=== PATIENT | male | born 1990 | race African-American/Black ===

== ENCOUNTER 2016-07-21 23:23 | Emergency (ER) | payer OTHER ==
[~2016-07-21] VITALS: Ht 180.3 cm; Wt 78.5 kg
[2016-07-22] MEDS ORDERED: ACETAMINOPHEN 325 MG TAB As Ordered ONE (00:50)
[2016-07-22] MEDS ORDERED: PRED20TA PO (00:57)
[2016-07-22] MEDS ORDERED: ZITHTAB PO (00:57)
[2016-07-22] MEDS ORDERED: ACETAMINOPHEN 325 MG TAB PO ONE (01:00)
[2016-07-22] MEDS ORDERED: methylPREDNISolone INJ 125 MG/2 ML VIAL (J2930) IM ONE (01:00)
[2016-07-22 01:05] VITALS: BP 115/56
--- NOTE | 2016-07-22 08:01 | REP ---
Clinical: Acute cough . Comparison: None. Technique: PA and lateral. Findings: The mediastinum and cardiac silhouette are normal. The lung dodson are clear and without acute consolidation, effusion, or pneumothorax. The skeletal structures are intact and normal. Impression: 1. No acute cardiopulmonary process. Signed by Omid Wong MD 07/22/2016 07:53 A
== END 2016-07-22 01:30 | disposition home or self-care (01) ==
LOC: M ED 23:23
DX: J20.9 Acute bronchitis, unspecified (principal)
CPT/HCPCS: 71020; 96372; 99282; J2930

== ENCOUNTER 2017-08-10 20:37 | Emergency (ER) | payer OTHER ==
[2017-08-10] MEDS: BACITRACIN OINT 30GM TOP (22:15)
[2017-08-10] MEDS ORDERED: MORPHINE 4 MG/ML 1ML VIAL/SYRINGE (J2270) IV (22:15)
[2017-08-10] MEDS: OXYCODONE/APAP 5MG/325MG(BULK FOR ED) 1 TABLET PO (22:15)
== END 2017-08-10 22:31 | disposition home or self-care (01) ==
LOC: M ED 20:37
DX: T20.26XA Burn of second degree of forehead and cheek, initial encounter (principal); T20.16XA Burn of first degree of forehead and cheek, initial encounter; X08.8XXA Exposure to other specified smoke, fire and flames, initial encounter; Y92.098 Other place in other non-institutional residence as the place of occurrence of the external cause; Y93.G2 Activity, grilling and smoking food
CPT/HCPCS: 99283

== ENCOUNTER 2020-12-23 19:49 | Emergency (ER) | payer OTHER ==
[~2020-12-23] VITALS: Ht 180.3 cm; Wt 88.0 kg
[~2020-12-23 19:49] MED LIST: BACI50OI EXT; PRED20TA PO; ZITHTAB PO
[2020-12-23 19:50] VITALS: BP 142/89
--- OUTSIDE RECORDS SUMMARY | 2020-12-23 19:56 | CCD ---
Author Author [facility] Address Unknown Phone Unavailable Support Name Relationship Address Phone [facility] Next Of Kin [address] [place] [address] Unavailable Re-disclosure Warning The records that you are about to access may contain information from federally-assisted alcohol or drug abuse programs. If such information is present, then the following federally mandated warning applies: This information has been disclosed to you from records protected by federal confidentiality rules (42 CFR part 2). The federal rules prohibit you from making any further disclosure of this information unless further disclosure is expressly permitted by the written consent of the person to whom it pertains or as otherwise permitted by 42 CFR part 2. A general authorization for the release of medical or other information is NOT sufficient for this purpose. The Federal rules restrict any use of the information to criminally investigate or prosecute any alcohol or drug abuse patient.The records that you are about to access may contain highly sensitive health information, the redisclosure of which is protected by Article 27-F of the [facility] Public Health law. If you continue you may have access to information: Regarding HIV / AIDS; Provided by facilities licensed or operated by the [facility] Office of Mental Health; or Provided by the [facility] Office for People With Developmental Disabilities. If such information is present, then the following [facility] mandated warning applies: This information has been disclosed to you from confidential records which are protected by state law. State law prohibits you from making any further disclosure of this information without the specific written consent of the person to whom it pertains, or as otherwise permitted by law. Any unauthorized further disclosure in violation of state law may result in a fine or assisted sentence or both. A general authorization for the release of medical or other information is NOT sufficient authorization for further disc losure. Medications No Information Insurance Providers Payer name Policy type / Coverage type Policy ID Covered green party ID Covered green party's relationship to stacy Policy Stacy Plan Information [facility] ACTIVE DUTY [id number] [employer] [id number] Problems, Conditions, and Diagnoses No Information Surgeries/Procedures No Information Results No Information Social History No Information
[2020-12-23] MEDS ORDERED: METR-265 PO (19:58)
[2020-12-23] MEDS ORDERED: CIPR-249 PO (19:58)
[2020-12-23] MEDS ORDERED: LIDOCAINE W/EPINEPHRINE 1% 20ML VIAL SC ONE (20:55)
--- OUTSIDE RECORDS SUMMARY | 2020-12-23 21:10 | CCD ---
Author Author [facility] Address Unknown Phone Unavailable Support Name Relationship Address Phone [place] [address] [facility] Next Of Kin [address] [place] [address] Unavailable Re-disclosure Warning The records that you [...] is protected by Article 27-F of the [facility] Public Health law. If you continue you may have access to information: Regarding HIV / AIDS; Provided by facilities licensed or operated by the [facility] Office of Mental Health; or Provided by the [facility] Office for People With Developmental Disabilities. If such information is present, then the following [facility] mandated warning applies: This information has been [...] law may result in a fine or residential sentence or both. A general authorization for the release of medical or other information is NOT sufficient authorization for further disc losure. Medications No Information Insurance Providers Payer name Policy type / Coverage type Policy ID Covered green party ID Covered green party's relationship to stacy Policy Stacy Plan Information [facility] ACTIVE D[employer]Y [id number] [facility] [employer] [id number] Problems, Conditions, and Diagnoses No Information Surgeries/Procedures No Information Results No Information Social History No Information
[2020-12-23 21:11] LABS: BASO % 0.1 % (0.0-1.0); EOS # 0.1 10^3/uL (0.0-0.5); EOS % 1.1 % (0.0-3.0); HEMATOCRIT 42.7 % (42.0-52.0); HEMOGLOBIN 14.4 g/dl (13.5-17.5); LYMPH # 1.5 10^3/uL (1.5-5.0); LYMPH % 18.2 % (24.0-44.0); MEAN CORPUSCULAR HEMOGLOBIN 30.1 pg (27.0-33.0); MEAN CORPUSCULAR HGB CONC 33.7 g/dl (32.0-36.5); MEAN CORPUSCULAR VOLUME 89.3 fl (80.0-96.0); MONO # 0.9 10^3/uL (0.0-0.8); MONO % 10.8 % (2.0-8.0); NEUTROPHILS # 5.9 10^3/uL (1.5-8.5); NEUTROPHILS % 69.4 % (36.0-66.0); PLATELET COUNT, AUTOMATED 249 10^3/uL (150-450); RED BLOOD COUNT 4.78 10^6/uL (4.30-6.10); WHITE BLOOD COUNT 8.5 10^3/uL (4.0-10.0)
[2020-12-23 21:31] LABS: ERYTHROCYTE SEDIMENTATION RATE 49 mm/hr (0-15)
[2020-12-23] MEDS ORDERED: KETOROLAC 30 MG/ML 1ML VIAL IV ONE (22:10)
[2020-12-23] MEDS ORDERED: DOXYCYCLINE HYCLATE 100 MG in D5W MINI-BAG PLUS 100 ML IV ONE (22:10)
[2020-12-23] MEDS ORDERED: DOXY-443 PO (22:58)
== END 2020-12-23 23:35 | disposition home or self-care (01) ==
LOC: M ED 19:49
DX: K61.1 Rectal abscess (principal); Z88.0 Allergy status to penicillin; Z77.098 Contact with and (suspected) exposure to other hazardous, chiefly nonmedicinal, chemicals
CPT/HCPCS: 10060; 85025; 85652; 86140; 87070; 87077; 87205; 96374; 96375; 99283; J1885

== ENCOUNTER 2021-04-27 16:20 | Emergency (ER) | payer OTHER ==
[~2021-04-27] VITALS: Ht 180.3 cm; Wt 86.8 kg
[~2021-04-27 16:20] MED LIST changes: +CIPR-249 PO; +DOXY-443 PO; +METR-265 PO
[2021-04-27] MEDS ORDERED: methocarbamoL 750 MG TAB PO ONE (20:00)
[2021-04-27] MEDS ORDERED: ACETAMINOPHEN 500 MG TAB PO ONE (20:00)
[2021-04-27] MEDS ORDERED: METH-1165 PO (20:02)
[2021-04-27 20:08] VITALS: BP 138/90
== END 2021-04-27 20:14 | disposition home or self-care (01) ==
LOC: M ED 16:20
DX: S16.1XXA Strain of muscle, fascia and tendon at neck level, initial encounter (principal); V49.49XA Driver injured in collision with other motor vehicles in traffic accident, initial encounter; Y92.410 Unspecified street and highway as the place of occurrence of the external cause; Z88.0 Allergy status to penicillin; Z77.098 Contact with and (suspected) exposure to other hazardous, chiefly nonmedicinal, chemicals